=== PATIENT | female | born 1970 | race Caucasian/White ===

== ENCOUNTER → 2016-06-11 | Outpatient (CLI) | payer OTHER | LOC: GMAM 15:06 | PROVIDERS: ATTEND Family Medicine | DX: R50.9 Fever, unspecified (principal) ==

== ENCOUNTER → 2016-06-13 | Outpatient (CLI) | payer OTHER ==
--- NOTE | 2016-06-13 11:18 | US ---
Study: Right upper quadrant abdominal ultrasound. Indication: ELEVATED LFT'S Technical: Multiplanar, grayscale sonogram of the right upper quadrant of the abdomen obtained. Comparison: None. Findings: The liver is normal in echogenicity without discrete mass. Prior cholecystectomy. The common bile duct measures 4 mm in diameter. No intrahepatic biliary ductal dilatation. Visualized right kidney is unremarkable. The visualized portions of the aorta and inferior vena cava are normal. The pancreas is not optimally characterized secondary to shadowing bowel gas. Impression: 1. No sonographic evidence of acute process within the right upper quadrant of the abdomen. 2. Prior cholecystectomy. Electronically signed by: Gallito Lynn MD 06/13/2016 11:16
== END ==
LOC: US 09:37
PROVIDERS: ATTEND Family Medicine
DX: R94.5 Abnormal results of liver function studies (principal); Z90.49 Acquired absence of other specified parts of digestive tract

== ENCOUNTER → 2016-06-14 | Outpatient (CLI) | payer OTHER | LOC: GMAM 10:31 | PROVIDERS: ATTEND Family Medicine | DX: R94.5 Abnormal results of liver function studies (principal) ==

== ENCOUNTER → 2016-06-18 | Outpatient (CLI) | payer OTHER ==
--- NOTE | 2016-06-18 08:53 | CT ---
EXAM DESCRIPTION: CT ABDOMEN PELVIS WITHOUT THEN WITH IV CONTRAST CLINICAL HISTORY: HEMATURIA COMPARISON: None Available TECHNIQUE: CT of the abdomen and Pelvis was performed with and without IV contrast. FINDINGS: Pre IV contrast images show no left or right renal calculus. The proximal portions of the ureters are unremarkable, and there is no left or right-sided hydronephrosis or perinephric inflammation. The mid and distal ureters and bladder are not included on pre contrast imaging. Following IV contrast administration, bilateral renal contrast excretion is noted. There is no suspicious renal mass. No ureteral filling defect, and there is no bladder wall thickening or bladder filling defect. The uterus is not identified, please correlate with surgical history. The ovaries are unremarkable. The appendix is normal. No dilated small bowel loops. No abdominal aortic aneurysm. The gallbladder is surgically absent. The liver, spleen, pancreas and adrenals are unremarkable. There is no lung base abnormality. Degenerative changes are noted in the lumbar spine at several levels. IMPRESSION: No urinary tract calculus, renal mass, bladder wall thickening or additional abnormality to explain hematuria.. Electronically signed by: Chapo Medina DO 06/18/2016 08:51
== END ==
LOC: CT 07:47
PROVIDERS: ATTEND Family Medicine
DX: R31.29 Other microscopic hematuria (principal)

== ENCOUNTER → 2016-07-04 | Outpatient (CLI) | payer OTHER | LOC: LAB.O 14:21 | PROVIDERS: ATTEND Urology | DX: R31.9 Hematuria, unspecified (principal) ==

== ENCOUNTER → 2016-12-19 | Outpatient (CLI) | payer OTHER | LOC: GMAM 11:01 | PROVIDERS: ATTEND Family Medicine | DX: E03.9 Hypothyroidism, unspecified (principal) ==

== ENCOUNTER → 2017-12-24 | Outpatient (CLI) | payer OTHER ==
--- NOTE | 2017-12-25 09:32 | MAM ---
EXAM DESCRIPTION: 3D Screening BILATERAL : Digital Mammography. CLINICAL HISTORY: 47 years Female SCREEN . No complaints. Remote family history of breast cancer. Childbirth. Postmenopausal. No HRT. COMPARISON: Digital screening bilateral study 01/03/2010. No prior reports available. TECHNIQUE: Bilateral CC and MLO projection full-field images, 3-D tomosynthesis digital mammographic technique. CAD not utilized. FINDINGS: The breast parenchymal density pattern is: Scattered areas of fibroglandular density. No skin thickening or nipple retraction. Bilateral solitary microcalcifications. These are diffuse. No new focal, stellate mass or density, focal asymmetry , and no suspicious microcalcifications bilaterally. Stable mammograms compared to prior study, taking into account differences in mammographic technique. IMPRESSION: BI-RADS CATEGORY: 2 - BENIGN FINDINGS. FOLLOW UP: Routine digital bilateral screening, one year interval from December 2017. Written communication explaining the IMPRESSION and follow-up, will be mailed to the patient and referring health care provider. According to the [employer], yearly mammograms are recommended starting at age 40 and continuing as long as a woman is in good health. Any breast change noted on a breast self-exam should be reported promptly to the patient's healthcare provider. Breast MRI is recommended for women with an approximately 20-25% or greater lifetime risk of breast cancer, including women with a strong family history of breast or ovarian cancer and women who have been treated for Hodgkin's disease. A negative mammographic report should not delay tissue diagnosis in patients with significant clinical history or physical findings. Extremely dense breast tissue limits the sensitivity of digital mammography. Electronically signed by: Cristhian Gates MD 12/25/2017 9:31 AM CDT
== END ==
LOC: MAMMO 13:22
PROVIDERS: ATTEND Family Medicine
DX: Z12.31 Encounter for screening mammogram for malignant neoplasm of breast (principal)

== ENCOUNTER → 2018-11-19 | Outpatient (CLI) | payer BC | LOC: GMAM 10:25 | PROVIDERS: ATTEND Family Medicine | DX: E03.9 Hypothyroidism, unspecified (principal); Z79.899 Other long term (current) drug therapy ==

== ENCOUNTER 2019-06-11 08:56 | Inpatient (IN) | payer BC ==
--- NOTE | 2019-06-11 09:00 | HP ---
SUPERVISING PHYSICIAN: Luis Valdovinos M.D. CHIEF COMPLAINT: Cat bite to right forearm. HISTORY OF PRESENT ILLNESS: This is a 49 year-old female patient that was seen in [facility] yesterday after a cat bite to the right forearm. The cat was actually her boyfriend's and it is typically tame and has no behavioral problems, but the cat was frightened by a guard dog and he bit the patient on her forearm. She was seen in the clinic. She complained that the area on her right forearm became red and swollen within hours of the bite. She was seen in clinic and given Rocephin as well as Augmentin. She had a followup today at the clinic and the area on her arm was worse. It was circumferential today and it had only been on the posterior part of her forearm. She actually had some redness up into the upper arm and complained of some lymph nodes in her right armpit that were swollen. After seeing the physician's assistant buyer in the clinic today, she called me for direct admission to the hospital for IV antibiotic therapy. The patient is being admitted to the hospital in stable condition. PAST MEDICAL HISTORY: 1. Attention-deficit disorder. 2. Hypothyroidism. 3. Hypertension. 4. Generalized anxiety disorder. 5. Depression. PAST SURGICAL HISTORY: 1. Cholecystectomy. 2. Tonsillectomy and adenoidectomy. 3. Meniscal repair of the left knee. 4. section times 3. 5. Hysterectomy. 6. Bunion removal of the left foot. CURRENT MEDICATIONS: ALLERGIES: FAMILY HISTORY: Positive for prostate cancer, hypertension, asthma, attention- deficit disorder and breast cancer. SOCIAL HISTORY: She is a teacher. She is . She has 3 children. She denies ever using tobacco. She drinks alcohol very infrequently and she denies any illicit drug use. REVIEW OF SYSTEMS: GENERAL: Positive for fever. Negative for fatigue or weight changes. HEENT: Negative for sinus symptoms, ear pain, vision changes or sore throat. RESPIRATORY: Negative for wheezing, coughing or shortness of breath. CARDIAC: Negative for chest pain, palpitations or tachycardia. GASTROINTESTINAL: Negative for nausea, vomiting, diarrhea or constipation. GENITOURINARY: Negative for hematuria, dysuria or polyuria. SKIN: As per History of Present Illness. LYMPHATIC: Positive for right axillary lymph node enlargement. NEUROLOGIC: Negative for headaches, seizures or weakness. PHYSICAL EXAMINATION: VITAL SIGNS: Temperature 98.4, heart rate 89, blood pressure 100/63, respiratory rate 16, O2 saturation 99% on room air. GENERAL: This is a 49 year-old female patient who is sitting up in her hospital bed. She is in no acute distress. HEENT: Normocephalic, atraumatic. Pupils are equal and reactive. Oropharynx is clear. NECK: Supple without mass. RESPIRATORY: Essentially clear to auscultation bilaterally. CHEST: There is equal rise and fall of the chest with inspiration and expiration. GASTROINTESTINAL: Abdomen is soft, nondistended, nontender. Bowel sounds are positive. EXTREMITIES: Her right forearm is positive for cellulitis from the majority of it being on her posterior forearm. There is streaking that goes up into the upper arm all the way to the shoulder. It is circumferential around the entire forearm. The skin is very tight. There is an obvious cat bite to the middle of the forearm with some very small amount of drainage. NEUROLOGIC: Awake, alert and oriented times three. Cranial nerves II-XII are grossly intact as tested. LABORATORY: WBCs are 12,800 with hemoglobin 13.7, hematocrit 40.7. ESR is 20. Sodium 137, potassium 2.9, chloride 103, carbon dioxide 26, BUN 9, creatinine 0.73. Total bilirubin 1.2, AST 61, C reactive protein 19.8. Urinalysis is basically unremarkable. Wound culture is pending. Blood culture is pending. All other labs and films have been reviewed via the EMR. ASSESSMENT: 1. Cellulitis of the right arm secondary to a cat bite failing outpatient treatment. 2. Hypertension. 3. Hypothyroidism on supplementation. 4. Depression and anxiety. 5. Attention deficit hyperactivity disorder. PLAN: The patient has been admitted to the hospital. Will start her on vancomycin and Zosyn. Zoya Nguyen, our Infectious Control liaison is coordinating all of the necessary paperwork as well as followup from the [facility] and she will be coordinating that over the next few days. I am going to order a sonogram of her soft tissues on that arm in the morning. She will have Lovenox for deep venous thrombosis prophylaxis. Her home medications will be restarted. I have also given her some potassium supplementation and I will recheck her lab in the morning. Hopefully she can be discharged in the next 2 to 3 days with close followup with her primary care physician, Dr. Valdovinos. #[id number] [facility]
[2019-06-11] MEDS ORDERED: ONDANSETRON INJ 4 MG/2 ML VIAL IV PRN (09:39)
[2019-06-11] MEDS ORDERED: SODIUM CHLORIDE 0.9% (FLUSH) 10 ML SYG IV PRN (09:39)
[2019-06-11] MEDS ORDERED: IV SET AND CAP CHANGE INJ INJ SCH (10:00)
[2019-06-11] MEDS ORDERED: TETANUS,DIPHTHERIA,PERTUSSIS 1 EA SYG IM ONE (10:19)
[2019-06-11] MEDS: ACETAMINOPHEN 325 MG TAB PO PRN (13:08)
[2019-06-11] MEDS ORDERED: VANCOMYCIN PER PHARMACY IVPB SCH (14:30)
[2019-06-11] MEDS ORDERED: SODIUM CHLORIDE 0.9% 100ML 100 ML IVPB ONE ×2 (14:47→19:18)
[2019-06-11] MEDS ORDERED: PIPERACILLIN/TAZOBACTAM 3.375 GM VIAL IVPB ONE ×2 (14:47→19:18)
[2019-06-11] MEDS: PIPERACILLIN/TAZOBACTAM 3.375 GM in SODIUM CHLORIDE 0.9% 100ML 100 ML IVPB SCH ×2 (14:55→20:23)
[2019-06-11] MEDS ORDERED: ACETAMINOPHEN 325 MG TAB ONE (15:04)
[2019-06-11] MEDS ORDERED: SODIUM CHLORIDE 0.9% 250ML 250 ML ONE ×2 (15:54→19:17)
[2019-06-11] MEDS ORDERED: VANCOMYCIN HCL INJ 500 MG VIAL ONE ×2 (15:54→19:19)
[2019-06-11] MEDS ORDERED: VANCOMYCIN HCL INJ 1,000 MG VIAL IVPB ONE ×2 (15:55→19:18)
[2019-06-11] MEDS: VANCOMYCIN HCL INJ 1,000 MG, VANCOMYCIN HCL INJ 250 MG in SODIUM CHLORIDE 0.9% 250ML 25... IVPB SCH (16:13)
[2019-06-11] MEDS ORDERED: POTASSIUM CHLORIDE 20 MEQ TAB PO ONE (20:08)
[2019-06-11] MEDS: SODIUM CHLORIDE 0.9% (FLUSH) 10 ML SYG IV SCH (20:23)
[2019-06-12] MEDS: ACETAMINOPHEN 325 MG TAB PO PRN (00:05)
[2019-06-12] MEDS ORDERED: SODIUM CHLORIDE 0.9% 100ML 100 ML IVPB ONE ×4 (01:56→19:46)
[2019-06-12] MEDS ORDERED: PIPERACILLIN/TAZOBACTAM 3.375 GM VIAL IVPB ONE ×4 (01:56→19:46)
[2019-06-12] MEDS: PIPERACILLIN/TAZOBACTAM 3.375 GM in SODIUM CHLORIDE 0.9% 100ML 100 ML IVPB SCH ×4 (02:00→21:31)
[2019-06-12] MEDS: VANCOMYCIN HCL INJ 1,000 MG, VANCOMYCIN HCL INJ 250 MG in SODIUM CHLORIDE 0.9% 250ML 25... IVPB SCH ×2 (03:37→16:51)
[2019-06-12] MEDS: LEVOTHYROXINE SODIUM 0.1 MG TAB PO SCH (06:24)
[2019-06-12] MEDS: AMPHETAMINE DEXTROAMPHETAMINE PO SCH ×2 (06:24→12:00)
[2019-06-12] MEDS: [UNRECOGNIZED DRUG - OTHER] PO SCH ×2 (06:24→12:00)
[2019-06-12] MEDS: DULoxetine HCL 30 MG CAP PO SCH (10:03)
[2019-06-12] MEDS: SODIUM CHLORIDE 0.9% (FLUSH) 10 ML SYG IV SCH ×2 (10:03→21:52)
--- NOTE | 2019-06-12 11:46 | US ---
Superficial sonogram of the right forearm Indication: cellulitis Comparison: None. Impression: Subcutaneous edema noted at this site of concern. No drainable fluid collection identified. MRI could better evaluate as clinically indicated. Electronically signed by: Gallito Lynn MD 06/12/2019 11:44 AM [employer]ATING [employer]
[2019-06-12] MEDS ORDERED: KCL 20MEQ/0.45% NS 1,000 ML IVS ONE (13:08)
[2019-06-12] MEDS: ENOXAPARIN SODIUM 40 MG/0.4 ML SYG SUBCU SCH (14:50)
[2019-06-12] MEDS ORDERED: VANCOMYCIN HCL INJ 1,000 MG VIAL IVPB ONE (16:35)
[2019-06-12] MEDS ORDERED: SODIUM CHLORIDE 0.9% 250ML 250 ML ONE (16:35)
[2019-06-12] MEDS ORDERED: VANCOMYCIN HCL INJ 500 MG VIAL ONE (16:35)
[2019-06-13] MEDS ORDERED: SODIUM CHLORIDE 0.9% 100ML 100 ML IVPB ONE ×3 (01:50→12:23)
[2019-06-13] MEDS ORDERED: PIPERACILLIN/TAZOBACTAM 3.375 GM VIAL IVPB ONE ×3 (01:50→12:22)
[2019-06-13] MEDS: PIPERACILLIN/TAZOBACTAM 3.375 GM in SODIUM CHLORIDE 0.9% 100ML 100 ML IVPB SCH ×3 (02:24→13:41)
[2019-06-13] MEDS ORDERED: VANCOMYCIN HCL INJ 500 MG VIAL ONE ×2 (02:59→12:22)
[2019-06-13] MEDS ORDERED: SODIUM CHLORIDE 0.9% 250ML 250 ML ONE ×2 (02:59→12:22)
[2019-06-13] MEDS ORDERED: VANCOMYCIN HCL INJ 1,000 MG VIAL IVPB ONE ×2 (03:00→12:23)
[2019-06-13] MEDS: VANCOMYCIN HCL INJ 1,000 MG, VANCOMYCIN HCL INJ 250 MG in SODIUM CHLORIDE 0.9% 250ML 25... IVPB SCH ×2 (03:25→14:30)
[2019-06-13] MEDS: LEVOTHYROXINE SODIUM 0.1 MG TAB PO SCH (06:41)
[2019-06-13] MEDS: AMPHETAMINE DEXTROAMPHETAMINE PO SCH ×2 (06:41→13:38)
[2019-06-13] MEDS: [UNRECOGNIZED DRUG - OTHER] PO SCH ×2 (06:41→13:38)
[2019-06-13] MEDS: SODIUM CHLORIDE 0.9% (FLUSH) 10 ML SYG IV SCH (09:53)
[2019-06-13] MEDS: DULoxetine HCL 30 MG CAP PO SCH (09:54)
--- NOTE | 2019-06-13 10:53 | PN ---
SUPERVISING PHYSICIAN: Luis Valdovinos MD DATE: 06/12/19 SUBJECTIVE: The patient is sitting up in bed. He has much less pain and discomfort in that right arm. She has no other complaints of shortness of breath, chest pain, nausea, vomiting. OBJECTIVE: VITAL SIGNS: Temperature 98.4. Heart rate 69. Blood pressure 115/77. Respiratory rate 16. O2 98% on room air. RESPIRATORY: Essentially clear to auscultation bilaterally. CARDIAC: Regular rate and rhythm. GASTROINTESTINAL: Abdomen is soft, nondistended, nontender. Bowel sounds are positive. EXTREMITIES: Her left arm is much less edematous and erythematous as it was yesterday. The circumference of her mid forearm has decreased by 1.2 cm. The erythema is receding. The anterior portion of the lower right arm continues to be quite erythematous and edematous, but looks to be dependent. NEUROLOGIC: Awake, alert and oriented times three. LABORATORY: CBC is basically unremarkable. Electrolytes are basically within normal limits with the exception of her calcium slightly low at 8.3. AST is 94, ALT 91. Preliminary blood cultures show no growth after 24 hours. Wound culture is pending. Her soft tissue ultrasound shows subcutaneous edema noted at the sites of concern. No drainable fluid collection identified. MRI could better evaluate if clinically indicated. All other labs and films have been reviewed via the EMR. ASSESSMENT: 1. Cellulitis of the right arm secondary to a cat bite failing outpatient treatment. 2. Hypertension. 3. Hypothyroidism on supplementation. 4. Depression and anxiety. 5. Attention deficit hyperactivity disorder. 6. Elevated liver enzymes with a history of elevated liver function tests, no known etiology. PLAN: We will continue present supportive care including her present antibiotics. I have given her an additional liter of fluids. We will monitor her cultures as they become available. Hopefully she can be discharged tomorrow or the next day on oral antibiotics. We will continue to monitor the patient closely and follow as needed. #[id number] [facility] [place]
[2019-06-13] MEDS: ENOXAPARIN SODIUM 40 MG/0.4 ML SYG SUBCU SCH (13:41)
[2019-06-13 15:12] VITALS: BP 128/72; TEMP 98.1; O2SAT 96
--- NOTE | 2019-06-16 13:31 | DS ---
SUPERVISING PHYSICIAN: Luis Valdovinos MD DISCHARGE DIAGNOSIS: 1. Cellulitis of the right arm secondary to a cat bite failing outpatient treatment. 2. Hypertension. 3. Hypothyroidism on supplementation. 4. Depression and anxiety. 5. Attention deficit hyperactivity disorder. 6. Elevated liver enzymes with a history of elevated liver function tests, no known etiology. HISTORY OF PRESENT ILLNESS: This is a 49-year-old female patient that was seen in [facility] the day prior to her admission after she had a cat bite to the right forearm. The cat was actually her boyfriend's and it is typically tame although it does run outside and has no past history of behavioral problems. The cat was frightened by a guard dog and bit the patient on her forearm. She was seen in the clinic after she complained that the area on her right forearm became red and swollen within hours of the bite. She was given Rocephin injection as well as started on Augmentin. She had a followup appointment the next day. The next morning, her forearm swelling and redness was significantly worse. It actually became circumferential on her entire forearm and extended up into her right armpit. She also had some swollen lymph nodes in her right armpit. She saw the physician's family assistant at the clinic and she called me for direct admission to the hospital for IV antibiotic therapy. The patient was a direct admit to the hospital in stable condition. HOSPITAL COURSE: The patient was admitted to the hospital. Initially, her forearm examination had erythema and edema from the mid dorsal portion of her right hand that extended up to the right elbow. The redness on the anterior side extended up to under the arm and into the armpit. It was very warm to the touch. It was tender to palpation. She was started on vancomycin and Zosyn. Zoya Nguyen, the infectious control nurse for our hospital, coordinated the necessary paperwork as well as the isolation of the cat to rule out any other diseases as the cat was not vaccinated. The cat was found and quarantined. A sonogram of that arm was ordered. She had Lovenox for DVT prophylaxis and her home medications were restarted. Her right arm was elevated. The following day, her clinically, her arm had improved quite a bit. Her forearm circumference decreased by 1.2 cm. She progressively improved. Today, her arm has lost almost a total of 3 cm. Redness is only on the posterior portion of the right forearm as well as the anterior portion although the area on her posterior forearm is only about 12 cm in diameter. She does have a slight amount of dependent edema on that anterior portion of the right forearm. It continues to be slightly erythematous. It is no longer warm to the touch. There is no active drainage. She will be transitioned to oral antibiotics and will be discharged today in stable condition. LABORATORY: WBC started out at 12.8 with an ESR of 20. The remainder of her CBC remained stable throughout her stay. Her WBCs normalized to 4.9. There was elevation in her ESR on discharge, but clinically she is improved. Chemistry showed stable sodium of 137 to 138. Potassium on admission was 2.9, but after supplementation, it came up to 3.9 and today it is 3.6. The remainder of her electrolytes are within normal limits. Her kidney function was stable with BUN less than 5, creatinine 0.63. Bilirubin on admission was slightly elevated at 1.2 and today is 0.6. AST got as high as 64 and her ALT was 91. It did come down today to an AST of 45 and ALT of 70. She does have a history of elevated liver function tests with unknown etiology. Her C-reactive protein on admission was 19.8 and today is 10.9. Urine was urinalysis. MICROBIOLOGY: Blood culture was negative, but final results are still pending. Her wound culture is still pending. RADIOLOGY: Soft tissue sonogram of the right arm showed subcutaneous edema noted at the site of concern with no drainable fluid collection identified. MRI can better evaluate if clinically indicated. DISCHARGE PLAN: The patient will be discharged home in stable condition. She is to resume her previous diet, increase her activity as tolerated and keep her arm elevated as much as possible. She has a followup appointment with Dr. Valdovinos on 06/16/2019. I discharged her home on Augmentin as well as Bactrim. She also received several Diflucan tablets as she has a history of yeast infections after administration of antibiotics. I have also recommended she used probiotics twice daily. She is to return to the hospital or followup with Dr. Valdovinos for any problems or complications. DISCHARGE MEDICATIONS: 1. Cymbalta. 2. Amphetamine-dextroamphetamine. 3. Levothyroxine. 4. Augmentin. 5. Bactrim. 6. Diflucan. #[id number] [facility]
== END 2019-06-13 16:50 | disposition home or self-care (01) | DRG 603 ==
LOC: MS 08:56
PROVIDERS: ADMIT Nurse Practitioner Acute Care; ATTEND Nurse Practitioner Acute Care
DX: L03.113 Cellulitis of right upper limb (principal); S51.851A Open bite of right forearm, initial encounter; I10 Essential (primary) hypertension; E03.9 Hypothyroidism, unspecified; R94.5 Abnormal results of liver function studies; F41.1 Generalized anxiety disorder; F32.9 Major depressive disorder, single episode, unspecified; F90.9 Attention-deficit hyperactivity disorder, unspecified type; W55.01XA Bitten by cat, initial encounter

== ENCOUNTER → 2019-06-16 | Outpatient (CLI) | payer BC | LOC: GMAM 10:32 | PROVIDERS: ATTEND Family Medicine | DX: I10 Essential (primary) hypertension (principal) ==

== ENCOUNTER → 2019-12-24 | Outpatient (CLI) | payer BC ==
--- NOTE | 2019-12-24 11:45 | RAD ---
EXAM DESCRIPTION: Knee,Left Complete CLINICAL HISTORY: 49 years Female, PAIN IN LEFT KNEE COMPARISON: None. Findings: Four views/radiographs Location: Left knee No acute fracture or dislocation. Severe medial compartment narrowing with lateral tibial translation. Tricompartmental osteophytes. Patellofemoral narrowing. No significant joint effusion. IMPRESSION: Osteoarthritis of the left knee. No acute osseous abnormality. Electronically signed by: Nakul Perkins MD 12/24/2019 11:44 AM CDT
--- NOTE | 2019-12-24 11:46 | RAD ---
EXAM DESCRIPTION: Knee,Right Complete CLINICAL HISTORY: 49 years Female, PAIN IN RIGHT KNEE COMPARISON: None. Findings: Four views/radiographs Location: Right knee No acute fracture or dislocation. Severe medial compartment narrowing with lateral tibial translation. Tricompartmental osteophytes. Patellofemoral narrowing. No significant joint effusion. IMPRESSION: Right knee osteoarthritis. No acute osseous abnormality. Electronically signed by: Nakul Perkins MD 12/24/2019 11:44 AM CDT
--- NOTE | 2019-12-24 11:47 | RAD ---
Single radiograph pelvis Indication: HIP PAIN LEFT AND RIGHT Comparison: January 19, 2016 Impression: Mild bilateral hip osteoarthritis with joint space narrowing and mild acetabular roof osteophyte formation. Tiny cam lesions. Mild pubic symphysis osteoarthritis. Lower lumbar disc disease. No acute fracture identified. Evaluation for fracture is limited given the degree of osteopenia. If high clinical concern for acute fracture, correlation with MRI recommended given its greater sensitivity in the osteopenic patient. If the patient cannot tolerate MRI imaging or more urgent imaging is required, CT could be performed, however it is less sensitive in the osteopenic patient when compared to MRI. Electronically signed by: Gallito Lynn MD 12/24/2019 11:45 AM CDT
== END ==
LOC: RAD 08:33
PROVIDERS: ATTEND Orthopaedic Surgery
DX: M16.0 Bilateral primary osteoarthritis of hip (principal); M51.36 Other intervertebral disc degeneration, lumbar region; M89.8X5 Other specified disorders of bone, thigh; M17.0 Bilateral primary osteoarthritis of knee

== ENCOUNTER → 2020-04-11 | Outpatient (CLI) | payer BC | LOC: LAB.O 10:34 | PROVIDERS: ATTEND Orthopaedic Surgery | DX: Z01.818 Encounter for other preprocedural examination (principal) ==

== ENCOUNTER → 2020-05-10 | Day surgery (SDC) | payer BC | LOC: AMB 05:28 | PROVIDERS: ATTEND Orthopaedic Surgery | DX: M17.11 Unilateral primary osteoarthritis, right knee (principal); M17.12 Unilateral primary osteoarthritis, left knee; Z53.9 Procedure and treatment not carried out, unspecified reason ==